=== PATIENT | female | born 1975 | race Caucasian/White ===

== ENCOUNTER 2016-08-07 07:06 | Day surgery (SDC) | payer MEDICARE, OTHER ==
[2015-03-25 00:33] VITALS: BP 122/84
[2016-08-07] MEDS ORDERED: SALINE FLUSH 10 ML DISP.SYRIN IVF ONE (08:00)
[2016-08-07] MEDS ORDERED: fentaNYL CITRATE/PF 100 MCG/ 2ML AMP ONE (08:00)
[2016-08-07] MEDS ORDERED: ROCURONIUM BROMIDE 10 MG/ML 5ML VIAL ONE (08:00)
[2016-08-07] MEDS ORDERED: DEXAMETHASONE SOD PHOS 4 MG/ML VIAL ONE (08:00)
[2016-08-07] MEDS ORDERED: PROPOFOL 200 MG/20 ML VIAL IV ONE (08:00)
[2016-08-07] MEDS ORDERED: LIDOCAINE HCL/PF 2% 100 MG/5 ML VIAL IJ ONE (08:00)
[2016-08-07] MEDS ORDERED: ONDANSETRON HCL/PF 4 MG/ 2ML VIAL ONE (08:00)
[2016-08-07] MEDS ORDERED: SEVOFLURANE 250 ML LIQUID IH ONE (08:00)
[2016-08-07] MEDS ORDERED: ceFAZolin SODIUM 1 GM VIAL ONE (08:00)
[2016-08-07] MEDS ORDERED: MIDAZOLAM HCL 2 MG/2 ML VIAL ONE (08:00)
[2016-08-07] MEDS ORDERED: PHENYLEPHRINE HCL 10 MG/1 ML ONE (08:00)
[2016-08-07] MEDS ORDERED: BUPIVACAINE HCL/PF 2.5 MG/ML 10ML VIAL IV ONE (08:00)
[2016-08-07] MEDS ORDERED: SUCCINYLCHOLINE CHLORIDE 20 MG/ML 10ML VIAL ONE (08:00)
[2016-08-07] MEDS ORDERED: ACETAMINOPHEN 1,000 MG/100 ML INJ IV ONE (08:00)
--- NOTE | 2016-08-07 18:06 | Operative Note ---
SURGEON: Stiven James MD ANESTHESIA: General. ESTIMATED BLOOD LOSS: Minimal. COMPLICATIONS: None. PREOPERATIVE DIAGNOSIS: Umbilical hernia. POSTOPERATIVE DIAGNOSIS: Umbilical hernia. PROCEDURE PERFORMED: Repair of umbilical hernia with mesh. DESCRIPTION OF PROCEDURE: Patient was brought to the operating room and general anesthesia was achieved. The abdomen was prepped and draped in the usual sterile fashion. A curvilinear incision was made along the inferior border of the umbilicus and carried to the fascia. There was a 1.5 cm hernia. A small Ventralex mesh was placed beneath the fascia. It was secured with interrupted 0-Prolene sutures. This accomplished a good repair of the hernia. The wound was irrigated and suctioned. There was no bleeding. The base of the umbilicus was tacked to the fascia with a 2-0 Vicryl suture. The skin was closed with running 4-0 Vicryl subcuticular sutures. Steri-Strips and a dressing was placed on the incision. The patient was awakened and extubated in the operating room and taken to the recovery room in good condition. APPARENT FINDINGS: A 1.5 cm umbilical hernia. MTDD
== END 2016-08-07 07:07 ==
LOC: OPSURG 07:06
PROVIDERS: ATTEND Colon & Rectal Surgery
DX: K42.9 Umbilical hernia without obstruction or gangrene (principal)
CPT/HCPCS: 49585; 81025; J0330; J0690; J1100; J2001; J2250; J2370; J2405; J2704; J3010; J3490; J7030; C1781; S1016

== ENCOUNTER 2016-08-19 07:22 | Day surgery (SDC) | payer MEDICARE, OTHER ==
[2015-03-25 00:33] VITALS: BP 122/84
[2016-08-19 07:58] LABS: EOSINOPHILS % 5.3 % (0.0-6.8); LYMPHOCYTES # 2.5 # k/uL (0.6-4.0); MEAN CORPUSCULAR HEMOGLOBIN 29.4 pg (28.0-34.0); MONOCYTES # 0.4 # k/uL (0.0-0.9); NEUTROPHILS # 2.5 # k/uL (1.4-7.7)
[2016-08-19] MEDS ORDERED: PROPOFOL 200 MG/20 ML VIAL IV ONE (08:00)
[2016-08-19] MEDS ORDERED: SALINE FLUSH 10 ML DISP.SYRIN IVF ONE (08:00)
[2016-08-19] MEDS ORDERED: LACTATED RINGERS 1,000 ML IV.SOLN IV ONE (08:00)
[2016-08-19 08:18] LABS: eGFR (African) > 60; eGFR (Non-African) > 60
--- NOTE | 2016-08-19 12:21 | Operative Note ---
SURGEON: mUesh Ta MD ANESTHESIA: IV sedation. ESTIMATED BLOOD LOSS: 2 mL. PREOPERATIVE DIAGNOSIS: Desires contraception. POSTOPERATIVE DIAGNOSIS: Desires contraception. PROCEDURE PERFORMED: Insertion of a Mirena IUD. OPERATIVE PROCEDURE AND FINDINGS: I talked to the patient before the operation. She was taken to the operating room and placed in the lithotomy position. She was given some Propofol intravenously. Her vagina was then prepped with Betadine. A single-tooth tenaculum was placed on the anterior lip of the cervix. The uterus sounded to 8 cm. The Mirena IUD was inserted without difficulty and the string was cut to the appropriate length. Needle, sponge, and instrument counts were performed by the OR circulating nurse and infectious waste technician at the end of the operation. I was told the counts were correct. The patient was awakened in the operating room and transferred to the recovery room in very good condition. MTDOlivia
== END 2016-08-19 07:23 ==
LOC: OPSURG 07:22
PROVIDERS: ATTEND General Practice
DX: Z30.430 Encounter for insertion of intrauterine contraceptive device (principal)
CPT/HCPCS: 36415; 80053; 81025; 85025; 85610; 85730; J2704; J7120; S1016

== ENCOUNTER 2016-08-21 12:12 | Outpatient (CLI) | payer MEDICARE, OTHER ==
[2015-03-25 00:33] VITALS: BP 122/84
== END 2016-08-21 12:15 ==
LOC: OUT 12:12
PROVIDERS: ATTEND Colon & Rectal Surgery
DX: Z98.890 Other specified postprocedural states (principal)
CPT/HCPCS: 99213; G0463

== ENCOUNTER 2016-09-16 08:50 | Outpatient (CLI) | payer MEDICARE, OTHER ==
[2015-03-25 00:33] VITALS: BP 122/84
== END 2016-09-16 08:52 ==
LOC: OUT 08:50
PROVIDERS: ATTEND General Practice
DX: Z30.431 Encounter for routine checking of intrauterine contraceptive device (principal)
CPT/HCPCS: G0463

== ENCOUNTER 2017-02-20 13:31 | Outpatient (CLI) | payer MEDICARE, OTHER ==
[2015-03-25 00:33] VITALS: BP 122/84
--- NOTE | 2017-02-20 15:30 | Diagnostic Imaging Report ---
BONNIE RAZA [facility] [id number] [facility] [address] [address] Report Submission Date: Feb 20, 2017 2:04:27 PM CDT Patient Study Name: RUY ZAZUETA Date: Feb 20, 2017 1:33:44 PM CDT Modality Type: CR Gender: F Description: LOWER EXTREMITY : 77 Institution: [facility] Physician: BONNIE RAZA Examination: Plain film knee History: Knee discomfort Findings: 3 views of the knee demonstrates normal cortical margins. No fracture. No dislocation. No joint effusion. No soft tissue irregularity. Impression: No osseous abnormality. If suspect soft tissue abnormality, consider obtaining MRI. Electronically signed on Feb 20, 2017 2:04:27 PM CDT by: Brody PADILLA
== END 2017-02-20 13:32 ==
LOC: RAD 13:31
PROVIDERS: ATTEND Family Medicine
DX: M25.562 Pain in left knee (principal)
CPT/HCPCS: 73562

== ENCOUNTER 2017-04-10 10:40 | Outpatient (CLI) | payer MEDICARE, OTHER ==
[2015-03-25 00:33] VITALS: BP 122/84
[2017-04-10 10:52] LABS: BASOPHILS % 0.9 (0.0-1.5); EOSINOPHILS % 5.3 % (0.0-6.8); MEAN CORPUSCULAR HEMOGLOBIN 29.8 pg (28.0-34.0); MEAN CORPUSCULAR VOLUME 85.8 fl (80.0-100.0); MONOCYTES % 5.3 % (0.0-11.0); NEUTROPHILS # 3.6 # k/uL (1.4-7.7)
[2017-04-10 11:26] LABS: eGFR (African) > 60; eGFR (Non-African) > 60
== END 2017-04-10 10:42 ==
LOC: LAB 10:40
PROVIDERS: ATTEND Psychiatry & Neurology Neurology
DX: G40.909 Epilepsy, unspecified, not intractable, without status epilepticus (principal); Z79.899 Other long term (current) drug therapy
CPT/HCPCS: 36415; 80053; 85025

== ENCOUNTER → 2017-05-15 | Outpatient (CLI) | payer MEDICARE, OTHER ==
[2015-03-25 00:33] VITALS: BP 122/84
[2017-05-15 12:26] LABS: BASOPHILS % 0.8 (0.0-1.5); EOSINOPHILS % 4.8 % (0.0-6.8); MEAN CORPUSCULAR HEMOGLOBIN 28.6 pg (28.0-34.0); MEAN CORPUSCULAR VOLUME 87.9 fl (80.0-100.0); MONOCYTES % 4.6 % (0.0-11.0)
[2017-05-15 12:48] LABS: eGFR (African) > 60; eGFR (Non-African) > 60
== END ==
LOC: LAB 12:12
PROVIDERS: ATTEND Psychiatry & Neurology Neurology
DX: G40.909 Epilepsy, unspecified, not intractable, without status epilepticus (principal); Z51.81 Encounter for therapeutic drug level monitoring
CPT/HCPCS: 36415; 80053; 85025

== ENCOUNTER 2017-09-01 16:13 | Outpatient (CLI) | payer MEDICARE, OTHER ==
[2015-03-25 00:33] VITALS: BP 122/84
[2017-09-01 17:19] LABS: eGFR (African) > 60; eGFR (Non-African) > 60
== END 2017-09-01 16:14 ==
LOC: LAB 16:13
PROVIDERS: ATTEND Family Medicine
DX: Z79.899 Other long term (current) drug therapy (principal)
CPT/HCPCS: 36415; 80053

== ENCOUNTER 2018-05-19 11:16 | Outpatient (CLI) | payer MEDICARE, OTHER ==
[2015-03-25 00:33] VITALS: BP 122/84
== END 2018-05-19 14:25 ==
LOC: LABRHC 11:16
PROVIDERS: ATTEND Family Medicine
DX: Z12.4 Encounter for screening for malignant neoplasm of cervix (principal)
CPT/HCPCS: 88148; G0143

== ENCOUNTER 2018-08-02 10:41 | Day surgery (SDC) | payer MEDICARE, OTHER ==
[2015-03-25 00:33] VITALS: BP 122/84
[~2018-08-02 10:41] MED LIST: LACTATED RINGERS 1,000 ML IV.SOLN IV ONE; PROPOFOL 200 MG/20 ML VIAL IV ONE
--- NOTE | 2018-08-02 13:20 | GI Report ---
REFERRING PHYSICIAN: Dr. Maureen Gotti [employer] LEAD: Rohit Bethea MD PROCEDURE MEDICATION: Propofol as per anesthesia. INDICATIONS: This is a 42-year-old woman whose mother had colon cancer in her 60s. Patient is from [place]. She is on a number of medications for a seizure disorder including Depakote. She also takes Doxepin, Gabapentin, Keppra, and Trileptal. She denies any obvious change in bowel habits or bleeding that she is aware of. She is 5 feet 2 inches and weighs 198 pounds. PROCEDURE PERFORMED: Colonoscopy. PROCEDURE: An Olympus video colonoscope was advanced into the rectum. Her prep was fair. We did have to do a lot of lavage throughout the colon to clear it. The colonoscope was slowly advanced all the way to the cecum. After a lot of lavage in the cecum, we could finally identify the appendiceal orifice. The ileocecal valve looks normal. On slow withdrawal, the cecum, ascending colon, and transverse colon with redundancy, but no obvious intraluminal lesions noted. The descending colon and sigmoid have redundancy. No obvious intraluminal lesions were noted. Retroflexion of the rectum was normal. Patient tolerated the procedure well. FINDINGS: An atonic redundant colon with fair prep but no obvious intraluminal lesions noted. RECOMMENDATIONS: 1. With a first-degree relative, I recommend having her colon looked at again in 5 years. 2. I recommended a 2-day prep next time. cc: Dr. Maureen PADILLA
== END 2018-08-02 12:38 | disposition home or self-care (01) ==
LOC: OPSURG 10:41
PROVIDERS: ATTEND Internal Medicine Gastroenterology
DX: Z12.11 Encounter for screening for malignant neoplasm of colon (principal); K59.8 Other specified functional intestinal disorders; Z80.0 Family history of malignant neoplasm of digestive organs
CPT/HCPCS: G0105; J2704; J7120; S1016

== ENCOUNTER 2018-11-03 13:44 | Outpatient (CLI) | payer MEDICARE, OTHER ==
[2015-03-25 00:33] VITALS: BP 122/84
[2018-11-03 14:23] LABS: BASOPHILS % 0.7 % (0.0-1.5); EOSINOPHILS % 5.8 % (0.0-6.8); MEAN CORPUSCULAR HEMOGLOBIN 30.1 pg (28.0-34.0); MONOCYTES % 6.8 % (0.0-11.0); NEUTROPHILS # 3.5 # k/uL (1.4-7.7)
[2018-11-03 14:26] LABS: eGFR (Non-African) > 60
== END 2018-11-03 14:00 ==
LOC: LAB 13:44
PROVIDERS: ATTEND Family Medicine
DX: G40.909 Epilepsy, unspecified, not intractable, without status epilepticus (principal)
CPT/HCPCS: 36415; 80053; 80177; 80299; 85025